=== PATIENT | male | born 2000 | race Caucasian/White ===

== ENCOUNTER 2020-03-02 13:10 | Emergency (ER) | payer OTHER ==
[2020-03-02 14:39] LABS: HEMOGLOBIN 15.8 gm/dl (14.0-17.5); RED BLOOD COUNT 5.1 M/UL (4.20-5.50); WHITE BLOOD COUNT 8.8 K/UL (4.5-11.0)
[2020-03-02 15:00] LABS: BUN/CREATININE RATIO 27 (0-10)
== END 2020-03-02 15:53 | disposition left against medical advice (07) ==
LOC: ER1 13:10
PROVIDERS: Physician Assistant Medical
DX: R06.02 Shortness of breath (principal); R07.9 Chest pain, unspecified; F17.290 Nicotine dependence, other tobacco product, uncomplicated; Z20.822 Contact with and (suspected) exposure to COVID-19
CPT/HCPCS: 71045; 80053; 81001; 84484; 85025; 85379; 93005; 99285; U0003